=== PATIENT | female | born 1970 | race Caucasian/White ===

== ENCOUNTER 2019-06-03 14:13 | Outpatient (CLI) | payer OTHER ==
--- NOTE | 2019-06-03 14:31 | RAD ---
CERVICAL SPINE RADIOGRAPH SERIES: Date: 06/03/19 INDICATION: Cervical spine pain, disability evaluation. FINDINGS: Moderate multilevel degenerative change of the cervical spine is present. There is mild retrolisthesi s at C4-5. No acute compression fracture. Presumed artifactual radiopaque density overlies the upper central chest. IMPRESSION: Moderate multilevel degenerative change of the cervical spine, without an acute fracture visualized. POS: OFF
== END 2019-06-03 14:14 | disposition home or self-care (01) ==
LOC: NAV RAD 14:13
PROVIDERS: ATTEND Family Medicine
DX: M50.30 Other cervical disc degeneration, unspecified cervical region (principal); M47.812 Spondylosis without myelopathy or radiculopathy, cervical region
CPT/HCPCS: 72040